=== PATIENT | female | born 1940 | race Hispanic/Latino ===

== ENCOUNTER 2017-04-30 09:41 | Outpatient (CLI) | payer MEDICARE, OTHER ==
--- NOTE | 2017-04-30 11:39 | Mammography Report ---
RIGHT DIGITAL DIAGNOSTIC MAMMOGRAM: 04/30/17 09:41:00 CLINICAL: For clip placement immediately status post stereotactic biopsy. COMPARISON:[facility] FINDINGS: A biopsy clip is now identified in the lower inner quadrant at the site of the previously described nodule. The nodule is no longer identified. IMPRESSION: Concordant clip placement status post ultrasound biopsy. BI-RADS CATEGORY: 4--Suspicious Pathology pending.
--- NOTE | 2017-04-30 12:36 | Mammography Report ---
STEREOTACTIC VACUUM ASSISTED BIOPSY WITH CLIP PLACEMENT RIGHT BREAST: 04/30/17 09:41:00 CLINICAL: An enlarging 5 mm circumscribed nodule with no ultrasound correlate. COMPARISON:[facility] mammograms FINDINGS: Consent for the procedure was obtained. The lesion was targeted with stereotactic guidance. The skin was prepped with Betadine and anesthetized with 1% lidocaine. 2% lidocaine with epinephrine was injected for deeper anesthesia. 8 gauge Mammotome biopsy was performed from a CC from below approach through a small dermatotomy. Prefire and post-fire images demonstrated satisfactory positioning of the probe. Samples were obtained around the clock face. A specimen radiograph confirmed satisfactory sampling with removal of at least a portion of the targeted nodule. A clip was placed at the biopsy site and the deployment was confirmed with an image. The probe was removed and hemostasis was achieved with mild pressure. A sterile dressing was applied. The patient tolerated the procedure well and there were no apparent complications. Two view mammogram demonstrated concordant placement of the biopsy clip and no identifiable nodule remaining. IMPRESSION: Uncomplicated stereotactic biopsy with clip placement right breast.
== END 2017-04-30 09:42 | disposition home or self-care (01) ==
LOC: SPVWC 09:41
PROVIDERS: ATTEND Specialist
DX: N63 Unspecified lump in breast (principal); Z85.3 Personal history of malignant neoplasm of breast
CPT/HCPCS: 19081; 88305; A4648; G0206

== ENCOUNTER 2017-10-29 09:49 | Outpatient (CLI) | payer MEDICARE, OTHER ==
--- NOTE | 2017-10-29 10:57 | Mammography Report ---
RIGHT DIGITAL DIAGNOSTIC MAMMOGRAM with CAD: 10/29/17 09:49:00 CLINICAL: Follow-up after benign biopsy. COMPARISON:04/30/17 FINDINGS: Scattered fibroglandular densities and a lower inner biopsy clip with no finding of the clip. No mass, architectural distortion or suspicious calcifications. IMPRESSION: Negative mammogram 6 months after benign needle biopsy. BI-RADS CATEGORY: 2 -- Benign RECOMMENDATION: Return to routine mammographic screening. ACR BI-RADS MAMMOGRAPHIC CODES: 0 = Needs additional imaging evaluation; 1 = Negative; 2 = Benign; 3 = Probably benign; 4 = Suspicious; 5 = Malignant; 6 = Known biopsy-proven malignancy COMMENT: 1. Dense breast tissue, i.e., adenosis, fibrocystic changes, etc., may obscure an underlying neoplasm. 2. Approximately 10% of cancers are not detected with mammography. 3. A negative mammography report should not delay biopsy if a clinically suspicious mass is present. COMMENT: Patient follow-up letters are generated by our [employer] application.
== END 2017-10-29 09:50 | disposition home or self-care (01) ==
LOC: SPVWC 09:49
PROVIDERS: ATTEND Specialist
DX: R92.8 Other abnormal and inconclusive findings on diagnostic imaging of breast (principal); Z85.3 Personal history of malignant neoplasm of breast

== ENCOUNTER 2018-10-30 07:58 | Outpatient (CLI) | payer MEDICARE, OTHER ==
--- NOTE | 2018-10-30 14:44 | Mammography Report ---
RIGHT DIGITAL SCREENING MAMMOGRAM with CAD: 10/30/18 07:58:00 CLINICAL: Routine screening. Breast cancer survivor status post left mastectomy. COMPARISON:10/29/17 FINDINGS: The patient is extremely kyphotic and as result positioning of the lower breast on MLO and LM views is suboptimal. The breast is mostly fatty with a few scattered fibroglandular densities. Lower inner biopsy clip.No mass, architectural distortion or suspicious calcifications. IMPRESSION: No mammographic evidence of malignancy. BI-RADS CATEGORY: 2 -- Benign RECOMMENDATION: Routine screening in one year. ACR BI-RADS MAMMOGRAPHIC CODES: 0 = Needs additional imaging evaluation; 1 = Negative; 2 = Benign; 3 = Probably benign; 4 = Suspicious; 5 = Malignant; 6 = Known biopsy-proven malignancy COMMENT: 1. Dense breast tissue, i.e., adenosis, fibrocystic changes, etc., may obscure an underlying neoplasm. 2. Approximately 10% of cancers are not detected with mammography. 3. A negative mammography report should not delay biopsy if a clinically suspicious mass is present. COMMENT: Patient follow-up letters are generated via our [employer] application.
== END 2018-10-30 07:59 | disposition home or self-care (01) ==
LOC: SPVWC 07:58
PROVIDERS: ATTEND Specialist
DX: Z12.31 Encounter for screening mammogram for malignant neoplasm of breast (principal)

== ENCOUNTER 2019-11-03 09:42 | Outpatient (CLI) | payer MEDICARE, OTHER ==
--- NOTE | 2019-11-03 10:36 | Mammography Report ---
DIGITAL SCREENING MAMMOGRAM WITH CAD, 11/03/2019 INDICATION: Routine screening mammography. Breast cancer survivor status post left mastectomy. TECHNIQUE: Digital right 2D mammography was obtained in the craniocaudal and mediolateral oblique pr ojections. This examination was interpreted with the benefit of Computer-Aided Detection analysis. COMPARISON: 10/30/2018 FINDINGS: Breast Density: The breast is heterogeneously dense, which may obscure small masses. A inner biopsy c lip. There is no evidence of dominant mass, suspicious calcifications or architectural distortion in either breast. Benign arterial calcifications. IMPRESSION: No mammographic evidence of malignancy. Follow up recommendation: Routine yearly BI-RADS Category 2: Benign. A "normal" or negative report should not discourage follow up or biopsy of a clinically significant f inding. A written summary of these findings will be mailed to the patient. The patient will be entered into a mammography reporting system which will generate a reminder letter for the patient's next appointmen t at the appropriate interval. The [employer] recommends yearly mammograms starting at age 40 and continuing as l jacqui as a woman is in good health. Breast MRI is recommended for women with an approximate 20-25% or greater lifetime risk of breast cancer, including women with a strong family history of breast or ova jackie cancer or who have been treated for Hodgkin's disease. Signer Name: Pilo Garcia MD Signed: 11/03/2019 10:32 AM Workstation Name: [id number]
== END 2019-11-03 09:43 | disposition home or self-care (01) ==
LOC: SPVWC 09:42
PROVIDERS: ATTEND Specialist
DX: Z12.31 Encounter for screening mammogram for malignant neoplasm of breast (principal); Z90.12 Acquired absence of left breast and nipple